=== PATIENT | female | born 2000 | race Caucasian/White ===

== ENCOUNTER 2021-12-26 15:04 | Inpatient (IN) ==
--- NOTE | 2021-12-26 15:44 | Emergency Department Note ---
Impression & Plan Suicidal ideations, Depression ED Provider Note NAME: MAITE MEDINA AGE: 21 SEX: F : 2000 ARRIVES VIA: [employer] INFORMANT: Patient ED PROVIDER(S): Neal Peralta DO CHIEF COMPLAINT: Suicidal ideations HPI: Patient is a 21-year-old female with past medical history of depression and anxiety who presents the ER who has been having a worsening thoughts of wanting to harm herself. This has been going on for the past several weeks. She notes she been struggling here at [facility] as her family is in [place]. She is very homesick. She has also been struggling with interactions with people within her [employer]. Today she told someone that she was having suicidal thoughts and they called police and she was brought in. She admits to suicidal ideations and last night she was thinking through different ways to kill her self. She notes she thought of overdosing on her medications but did not feel as though there was enough of her medication left to kill her self. She denies any auditory or visual hallucinations. No other exacerbating or remitting factors. She notes she has been eating and drinking less than usual. ROS: See above HPI for pertinent positives & negatives. A total of 10 systems reviewed and were otherwise negative. PAST MEDICAL HISTORY:See Below PAST SURGICAL HISTORY:See Below FAMILY HISTORY:See Below SOCIAL HISTORY:See Below HOME MEDICATIONS:See Below ALLERGIES:See Below VITALS:See Below PHYSICAL EXAMINATION: GENERAL: Sitting up in bed, alert, well appearing, well nourished, no distress, non-toxic EYE EXAM: normal conjunctiva. OROPHARYNX: no exudate, no erythema, lips, buccal mucosa, and tongue normal and mucous membranes are moist NECK: supple, no nuchal rigidity, no adenopathy, non-tender LUNGS: Clear to auscultation. Normal chest wall mechanics HEART: no murmurs, S1 normal and S2 normal ABDOMEN: abdomen soft, non-tender, normo-active bowel sounds, no masses, no rebound or guarding. UPPER EXTREMITIES: upper extremities are grossly normal. LOWER EXTREMITIES: No pitting edema. NEURO EXAM: Normal sensorium, cranial nerves II-XII grossly intact, normal speech, no gross weakness of arms, no gross weakness of legs. PSYCH: Admits to suicidal ideations as described above MEDICAL DECISION MAKING: Patient is a 21-year-old female who presents to ER for depression and suicidal ideations. SHE has a PMH of anxiety and depression. Labs were obtained and showed no significant leukocytosis or anemia. BMP along with LFTs, bilirubin, and TSH was unremarkable. UA was clean. Tox was negative. Alcohol was negative. COVID was negative. Patient has thought through killing herself last night and has thought of different ways of doing this. She did not kill her self as she did not feel as though she had enough medications to do it. She came in today and she does feel as though she needs inpatient treatment. Currently awaiting referrals and placement. Patient was signed out to Dr. Nam at the change of shift. Start Time: 1510 Reason: Patient with PMHx of depression underwent ED Observation for suicidal ideations. Fam Hx: No pertinent family history SocHx: See Below Assessment(s): As described above Summary: As described above Disposition: 12/26/2021 at 1930. Total Time: 4hrs 20minutes Triage Nursing notes reviewed. Limited review of prior medical records performed Vital Signs: reviewed and remarkable for HTN and tachy Differential diagnosis: Mood disorder, infection, hypoglycemia, electrolyte abnormalities, cardiac sources, intracerebral event, toxicologic, trauma, neurologic, as well as other pathologies. ER treatment provided: See below Diagnostics interpreted by me: ECG: none Laboratory studies: As stated above and show below. Imaging studies: See below Consultation(s): none Procedures: none Critical Care: None Past Med/Surg History Social History Feels Safe at Home: Yes Allergies Allergies Allergy/AdvReac Type Severity Reaction Status Date / Time No Known Allergies Allergy Unverified 12/26/21 15:32 Home Meds Home Medications Medication Instructions Recorded Confirmed lorazepam 0.5 mg tablet (Ativan) 0.5 mg PO DAILY PRN Anxiety 12/26/21 12/26/21 trazodone 50 mg tablet 75 mg PO HS 12/26/21 12/26/21 Results & Data (ED) Vital Signs Vital Signs - 24 hr 12/26/21 15:14 12/26/21 15:25 Temperature 36.7 C 36.8 C Temperature Source Oral Oral Pulse Rate 120 H Pulse Rate [Right Finger] 120 H Respiratory Rate 16 20 Respiratory Effort / Characteristics Non-Labored Non-Labored Spontaneous Respiratory Depth Normal Normal Blood Pressure 147/100 H Blood Pressure [Right Arm] 147/100 H Blood Pressure Mean 115 Blood Pressure Mean [Right Arm] 115 Blood Pressure Position Sitting Blood Pressure Position [Right Arm] Sitting Pulse Oximetry 98 99 Oxygen Delivery Method Room Air Room Air Sepsis New/Unexplained Change in Mental Status N/A Sepsis Action Taken by Nursing No Action Required Laboratory Data Result diagrams: 12/26/21 15:50 12/26/21 15:50 Lab Results 12/26/21 12/26/21 12/26/21 Range/Units 15:23 15:23 15:23 WBC (4.8-10.8) K/ul RBC (3.93-5.22) M/uL Hgb (12.0-16.0) g/dl Hct (34.1-44.9) % MCV (80.0-100.0) fL MCH (25.0-34.0) pg MCHC (32.0-36.0) g/dL RDW Std Deviation (36.4-46.3) fL RDW Coeff of [place] (11.5-14.5) % Plt Count (130-400) K/uL MPV (9.4-12.3) fL Immature Gran % (Auto) % Neut % (Auto) % Lymph % (Auto) % Giles % (Auto) % Eos % (Auto) % Baso % (Auto) % Neut # (Auto) (1.4-6.5) K/uL Lymph # (Auto) (1.2-3.4) K/uL Giles # (Auto) (0.24-0.82) K/uL Eos # (Auto) (0-0.50) K/uL Baso # (Auto) (0-0.2) K/uL Immature Gran # (Auto) (0.00-0.02) K/uL Sodium (136-145) mmol/L Potassium (3.5-5.1) mmol/L Chloride (98-107) mmol/L Carbon Dioxide (21-32) mmol/L Anion Gap (3-11) BUN (6-23) mg/dl Creatinine (0.6-1.2) mg/dl Est Cr Clr Drug Dosing Est GFR ( Amer) ml/min Est GFR (Non-Af Amer) ml/min BUN/Creatinine Ratio (10-20) Glucose (70-99(Fasting)) mg/dl Calcium (8.5-10.1) mg/dl Total Bilirubin (0.2-1.0) mg/dl AST (13-39) U/L ALT (7-52) U/L Alkaline Phosphatase (34-104) U/L Total Protein (6.0-8.3) gm/dl Albumin (3.4-5.0) gm/dl Globulin (2.5-4.0) gm/dl Albumin/Globulin Ratio (0.9-2) TSH (0.300-4.500) uIu/ml Urine Color Yellow Urine Appearance Clear (Clear) Urine pH 8.5 H (4.5-7.5) Ur Specific [place] 1.014 (1.000-1.030) Urine Protein Negative (Negative) Urine Glucose (UA) Negative (Negative) Urine Ketones Negative (Negative) Urine Blood Negative (Negative) Urine Nitrite Negative (Negative) Urine Bilirubin Negative (Negative) Urine Urobilinogen Negative (Negative) Ur Leukocyte Esterase Negative (Negative) Urine Test Negative (Negative) Salicylates (3.0-30) mg/dl Urine Opiates Screen Neg (Neg) Ur Methadone, Qual Neg (Neg) Acetaminophen (10-30) ug/ml Urine Barbiturates Neg (Neg) Ur Phencyclidine (PCP) Neg (Neg) U Amphetamin/Meth Scrn Neg (Neg) MDMA (Ecstasy) Screen Neg (Neg) U Benzodiazepines Scrn Neg (Neg) Ur Cocaine Metabolite Neg (Neg) U Marijuana (THC) Screen Neg (Neg) Ethyl Alcohol mg/dL (<10.0) mg/dl SARS-CoV-2, RNA, NAAT (NEGATIVE) 12/26/21 12/26/21 12/26/21 Range/Units 15:50 15:50 15:50 WBC 8.57 (4.8-10.8) K/ul RBC 4.83 (3.93-5.22) M/uL Hgb 14.1 (12.0-16.0) g/dl Hct 41.1 (34.1-44.9) % MCV 85.1 (80.0-100.0) fL MCH 29.2 (25.0-34.0) pg MCHC 34.3 (32.0-36.0) g/dL RDW Std Deviation 37.5 (36.4-46.3) fL RDW Coeff of [place] 12.3 (11.5-14.5) % Plt Count 275 (130-400) K/uL MPV 9.6 (9.4-12.3) fL Immature Gran % (Auto) 0.4 % Neut % (Auto) 62.3 % Lymph % (Auto) 27.3 % Giles % (Auto) 8.4 % Eos % (Auto) 1.2 % Baso % (Auto) 0.4 % Neut # (Auto) 5.35 (1.4-6.5) K/uL Lymph # (Auto) 2.34 (1.2-3.4) K/uL Giles # (Auto) 0.72 (0.24-0.82) K/uL Eos # (Auto) 0.10 (0-0.50) K/uL Baso # (Auto) 0.03 (0-0.2) K/uL Immature Gran # (Auto) 0.03 H (0.00-0.02) K/uL Sodium 139 (136-145) mmol/L Potassium 3.8 (3.5-5.1) mmol/L Chloride 106 (98-107) mmol/L Carbon Dioxide 26 (21-32) mmol/L Anion Gap 7 (3-11) BUN 5 L (6-23) mg/dl Creatinine 0.63 (0.6-1.2) mg/dl Est Cr Clr Drug Dosing Not Reportable Est GFR ( Amer) 149.7 ml/min Est GFR (Non-Af Amer) 129.1 ml/min BUN/Creatinine Ratio 7.9 L (10-20) Glucose 106 H (70-99(Fasting)) mg/dl Calcium 9.1 (8.5-10.1) mg/dl Total Bilirubin 0.4 (0.2-1.0) mg/dl AST 11 L (13-39) U/L ALT 6 L (7-52) U/L Alkaline Phosphatase 84 (34-104) U/L Total Protein 7.6 (6.0-8.3) gm/dl Albumin 4.3 (3.4-5.0) gm/dl Globulin 3.3 (2.5-4.0) gm/dl Albumin/Globulin Ratio 1.3 (0.9-2) TSH 0.548 (0.300-4.500) uIu/ml Urine Color Urine Appearance (Clear) Urine pH (4.5-7.5) Ur Specific [place] (1.000-1.030) Urine Protein (Negative) Urine Glucose (UA) (Negative) Urine Ketones (Negative) Urine Blood (Negative) Urine Nitrite (Negative) Urine Bilirubin (Negative) Urine Urobilinogen (Negative) Ur Leukocyte Esterase (Negative) Urine Test (Negative) Salicylates (3.0-30) mg/dl Urine Opiates Screen (Neg) Ur Methadone, Qual (Neg) Acetaminophen (10-30) ug/ml Urine Barbiturates (Neg) Ur Phencyclidine (PCP) (Neg) U Amphetamin/Meth Scrn (Neg) MDMA (Ecstasy) Screen (Neg) U Benzodiazepines Scrn (Neg) Ur Cocaine Metabolite (Neg) U Marijuana (THC) Screen (Neg) Ethyl Alcohol mg/dL (<10.0) mg/dl SARS-CoV-2, RNA, NAAT (NEGATIVE) 12/26/21 12/26/21 12/26/21 Range/Units 15:50 15:50 15:50 WBC (4.8-10.8) K/ul RBC (3.93-5.22) M/uL Hgb (12.0-16.0) g/dl Hct (34.1-44.9) % MCV (80.0-100.0) fL MCH (25.0-34.0) pg MCHC (32.0-36.0) g/dL RDW Std Deviation (36.4-46.3) fL RDW Coeff of [place] (11.5-14.5) % Plt Count (130-400) K/uL MPV (9.4-12.3) fL Immature Gran % (Auto) % Neut % (Auto) % Lymph % (Auto) % Giles % (Auto) % Eos % (Auto) % Baso % (Auto) % Neut # (Auto) (1.4-6.5) K/uL Lymph # (Auto) (1.2-3.4) K/uL Giles # (Auto) (0.24-0.82) K/uL Eos # (Auto) (0-0.50) K/uL Baso # (Auto) (0-0.2) K/uL Immature Gran # (Auto) (0.00-0.02) K/uL Sodium (136-145) mmol/L Potassium (3.5-5.1) mmol/L Chloride (98-107) mmol/L Carbon Dioxide (21-32) mmol/L Anion Gap (3-11) BUN (6-23) mg/dl Creatinine (0.6-1.2) mg/dl Est Cr Clr Drug Dosing Est GFR ( Amer) ml/min Est GFR (Non-Af Amer) ml/min BUN/Creatinine Ratio (10-20) Glucose (70-99(Fasting)) mg/dl Calcium (8.5-10.1) mg/dl Total Bilirubin (0.2-1.0) mg/dl AST (13-39) U/L ALT (7-52) U/L Alkaline Phosphatase (34-104) U/L Total Protein (6.0-8.3) gm/dl Albumin (3.4-5.0) gm/dl Globulin (2.5-4.0) gm/dl Albumin/Globulin Ratio (0.9-2) TSH (0.300-4.500) uIu/ml Urine Color Urine Appearance (Clear) Urine pH (4.5-7.5) Ur Specific [place] (1.000-1.030) Urine Protein (Negative) Urine Glucose (UA) (Negative) Urine Ketones (Negative) Urine Blood (Negative) Urine Nitrite (Negative) Urine Bilirubin (Negative) Urine Urobilinogen (Negative) Ur Leukocyte Esterase (Negative) Urine Test (Negative) Salicylates < 3.0 L (3.0-30) mg/dl Urine Opiates Screen (Neg) Ur Methadone, Qual (Neg) Acetaminophen < 3 L (10-30) ug/ml Urine Barbiturates (Neg) Ur Phencyclidine (PCP) (Neg) U Amphetamin/Meth Scrn (Neg) MDMA (Ecstasy) Screen (Neg) U Benzodiazepines Scrn (Neg) Ur Cocaine Metabolite (Neg) U Marijuana (THC) Screen (Neg) Ethyl Alcohol mg/dL < 10.0 (<10.0) mg/dl SARS-CoV-2, RNA, NAAT NEGATIVE (NEGATIVE) Discharge Plan Visit Data Chief Complaint: Mental Health Evaluation Stated Complaint: [facility] ED Provider: Neal Peralta Discharge Problem: Suicidal ideations, Depression Forms Stand Alone Forms: My [facility], Suicide Prevention Resources Prescriptions Prescriptions: No Action trazodone 50 mg Tablet 75 mg PO HS lorazepam [Ativan] 0.5 mg Tablet 0.5 mg PO DAILY PRN (Reason: Anxiety) Referrals Referrals: PCP,NO [Primary Care Provider] -
[2021-12-26 15:46] LABS: Appearance Urine Clear (Clear); Bilirubin Urine Negative (Negative); Blood Urine Negative (Negative); Color Urine Yellow; Glucose Urine UA Negative (Negative); Ketones Urine Negative (Negative); Leukocyte Esterase Urine Negative (Negative); Nitrite Urine Negative (Negative); Pregnancy Test, Urine Negative (Negative); Protein Urine Negative (Negative); Specific Gravity Urine 1.014 (1.000-1.030); Urobilinogen Urine Negative (Negative); pH Urine 8.5 (4.5-7.5)
[2021-12-26 16:01] LABS: Basophils # (auto) 0.03 K/uL (0-0.2); Basophils % (auto) 0.4 %; Eosinophils % (auto) 1.2 %; Hematocrit (blood only) 41.1 % (34.1-44.9); Hemoglobin 14.1 g/dl (12.0-16.0); Immature Granulocytes # (auto) 0.03 K/uL (0.00-0.02); Immature Granulocytes % (auto) 0.4 %; Lymphocytes # (auto) 2.34 K/uL (1.2-3.4); Lymphocytes % (auto) 27.3 %; Mean Corpuscular Hemoglobin 29.2 pg (25.0-34.0); Mean Corpuscular Hgb Conc 34.3 g/dL (32.0-36.0); Mean Corpuscular Volume 85.1 fL (80.0-100.0); Mean Platelet Volume 9.6 fL (9.4-12.3); Monocytes # (auto) 0.72 K/uL (0.24-0.82); Monocytes % (auto) 8.4 %; Neutrophils # (auto) 5.35 K/uL (1.4-6.5); Neutrophils % (auto) 62.3 %; Platelet Count 275 K/uL (130-400); RDW Coefficient of Variation 12.3 % (11.5-14.5); RDW Standard Deviation 37.5 fL (36.4-46.3); Red Blood Count 4.83 M/uL (3.93-5.22); White Blood Count 8.57 K/ul (4.8-10.8)
[2021-12-26 16:05] LABS: Amphetamines+Metham, Urine Neg (Neg); Barbiturates, Urine Neg (Neg); Benzodiazepine, Urine Neg (Neg); Cocaine, Urine Neg (Neg); MDMA (Ecstacy), Urine Neg (Neg); Methadone, Urine Neg (Neg); Opiate, Urine Neg (Neg); Phencyclidine, Urine Neg (Neg)
[2021-12-26 16:34] LABS: Acetaminophen < 3 ug/ml (10-30); Alanine Aminotransferase 6 U/L (7-52); Albumin Globulin Ratio 1.3 (0.9-2); Albumin Level 4.3 gm/dl (3.4-5.0); Alkaline Phosphatase 84 U/L (34-104); Anion Gap 7 (3-11); Aspartate Aminotransferase 11 U/L (13-39); BUN Creatinine Ratio 7.9 (10-20); Bilirubin,Total 0.4 mg/dl (0.2-1.0); Blood Urea Nitrogen 5 mg/dl (6-23); Calcium 9.1 mg/dl (8.5-10.1); Carbon Dioxide 26 mmol/L (21-32); Chloride 106 mmol/L (98-107); Est GFR (African American) 149.7 ml/min; Est GFR (Non-African American) 129.1 ml/min; Globulin 3.3 gm/dl (2.5-4.0); Glucose 106 mg/dl (70-99(Fasting)); Potassium 3.8 mmol/L (3.5-5.1); Salicylate < 3.0 mg/dl (3.0-30); Sodium 139 mmol/L (136-145); Total Protein 7.6 gm/dl (6.0-8.3)
[2021-12-26] MEDS ORDERED: LORazepam 1 MG TAB SL STA (19:11)
--- NOTE | 2021-12-26 19:31 | Emergency Department Note ---
ED Visit Note Received this patient in signout. See prior note for further information. Patient here for the suicide with some follow-up plans wishing for voluntary treatment of depression and anxiety. Case management proceeded with evaluation and bed search. Patient accepted to [facility] for inpatient care on voluntary basis. .
[2021-12-26] MEDS: traZODone HCL 50 MG TAB PO SCH ×2 (20:19→20:49)
[2021-12-26] MEDS ORDERED: hydrOXYzine HCl 25 MG TAB PO PRN ×2 (21:09)
[2021-12-26] MEDS ORDERED: BISMUTH SUBSALICYLATE LIQD 236 ML PO PRN (21:09)
[2021-12-26] MEDS ORDERED: SODIUM CHLORIDE 0.65% NA SOLN 45 ML (OCEAN) PRN (21:09)
[2021-12-26] MEDS ORDERED: MAGNESIUM HYDROXIDE SUSP 30 ML UDC PO PRN (21:09)
[2021-12-26] MEDS ORDERED: ACETAMINOPHEN 325 MG TAB PO PRN (21:09)
[2021-12-26] MEDS ORDERED: ALUMINUM/MAGNESIUM SUSP 30 ML UDC PO PRN (21:09)
[2021-12-26] MEDS: COUGH DROP (SUGAR FREE) LOZ 24 LOZ/1 BOX BUCCAL PRN (22:37)
[2021-12-27] MEDS: COUGH DROP (SUGAR FREE) LOZ 24 LOZ/1 BOX BUCCAL PRN ×3 (07:31→20:25)
[2021-12-27] MEDS ORDERED: FLUARIX QUADRIVALENT 0.5 ML SYR IM ONE (08:00)
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
[2021-12-27] MEDS ORDERED: LORazepam 0.5 MG TAB PO PRN (15:34)
[2021-12-27] MEDS: traZODone HCL 100 MG TAB PO SCH (21:44)
--- NOTE | 2021-12-28 15:51 | Psychiatric Progress Note ---
Date of Service December 28, 2021 Impression / Recommendations Impression The patient is a 21 year old with a history of depression and anxiety with panic attacks who was admitted for SI with plan of overdosing on her medication. Diagnostically consistent with MDD with anxious distress in context of social conflict and social isolation/loneliness since returning to campus and being away from family in [place]. The patient is deemed unstable and requires psychiatric hospitalization for diagnostic clarification, safety and stabilization, medication management and development of further coping skills. Again discussed medication treatment options in detail including SSRIs. Discussed risks, benefits and alternatives. Patient would like to start and consented to fluoxetine for MDD and YOLI and social anxiety. Reviewed side effects including but not limited to: GI, NAVARRO, sexual side effects, and counseled on black box warning of potential for emergence of or increased SI and need to let staff know should this occur or should they feel unsafe. Also discussed importance of seeking emergency care following discharge if this side effect occurs in the future. 12/28/21: Remains depressed and anxious. Tolerating higher dose of trazodone. Interested in starting fluoxetine. Left a voicemail message for her outpatient psychiatrist Dr. Viktoriya Malagon. (1) MDD (major depressive disorder), recurrent episode: (2) Suicidal ideations: (3) Generalized anxiety disorder with panic attacks: (4) Social anxiety disorder: Plan 12/28/21: -Start fluoxetine 20mg daily with lunch -Continue trazodone 100mg qhs -continue ativan 0.5mg daily prn for panic attacks 12/27/21: The patient was admitted to the [facility] ([facility] mental health unit) on q15 min checks (behavioral with suicide precautions) for safety. The patient will participate in group, recreational, and milieu therapies and will be offered additional individual and family sessions as clinically appropriate. -increase trazodone to 100 mg qhs -ativan 0.5mg daily prn Inventory Assets Strengths: supportive relationships, willing to get treatment, student Needs: safety and stabilization, medication adjustment, additional coping skills, increased outpatient services Suicide Risk Level Suicide Risk Level: High-Moderate (q15 min suicide checks) (High-Moderate due to depression with SI with plan prior to admission but feels safe in the hospital, able to safety contract and agrees to let nursing/staff know should they develop plan, intent or feel unable to remain safe. 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 Chief Complaint "I had a rough start to the day but I'm doing a little better now". Review of Systems Sleep Information Total Hours of Sleep: 6 Meal Information Percent Meal Consumed - Breakfast: 100 Percent Meal Consumed - Lunch: 100 Percent Meal Consumed - Dinner: 100 Subjective Subjective Patient was seen & assessed and interval progress reviewed with treatment team nursing and social work. Center Line more tired with higher dose of trazodone but still with some awakenings. She considered SSRI options and discussed with her mom on the phone last night. Her mom had a prior good response to fluoxetine so she'd like to try this. Reviewed that I left a message for her outpt psychiatrist. Tearful this morning but participating in groups. No side effects from higher dose of trazodone. Physical Exam Psychiatric Orientation: alert and oriented x 3 Apperance: appropriately dressed and appropriately groomed Eye Contact: good eye contact Motor Behavior: no abnormal motor movements Speech: normal rate/rhythm/volume of speech Affect: + depressed affect and + anxious affect Mood: + depressed mood and + anxious mood Thought Process: goal directed thought process Thought Content: reality based without delusions Suicidal Thoughts: denies suicidal thoughts Homicidal Thoughts: denies homicidal thoughts Hallucinations: no auditory hallucinations and no visual hallucinations Cognition: recent memory grossly intact, remote memory grossly intact, attention grossly intact and language grossly intact Estimated Intelligence: consistent with education level Insight: + fair insight Judgement: + fair judgement Vital Signs (Past 24 Hours) Last Vital Signs Temp 37 C 12/28/21 06:27 Pulse 93 H 12/28/21 06:27 Resp 16 12/28/21 06:27 BP 110/73 12/28/21 06:27 Pulse Ox 99 12/26/21 19:11 O2 Del Method 12/26/21 15:25 Results & Data ([facility]) Current Inpatient Medications Current Inpatient Medications: Current Inpatient Medications Acetaminophen (Acetaminophen 325 Mg Tab) 650 mg PO Q4H PRN PRN Reason: Headache or Minor Fever Stop: 01/25/22 21:08 Al Hydrox/Mg Hydrox/Simethicone (Aluminum/Magnesium Susp 30 Ml Udc) 30 ml PO Q4H PRN PRN Reason: GI Upset Stop: 01/25/22 21:08 Bismuth Subsalicylate (Bismuth Subsalicylate Liqd 236 Ml) 15 ml PO PRN PRN PRN Reason: Loose Stool Stop: 01/25/22 21:08 Fluoxetine HCl (Fluoxetine Hcl 20 Mg Cap) 20 mg PO DAILYBL LARA Stop: 01/28/22 11:59 Hydroxyzine HCl (Hydroxyzine Hcl 25 Mg Tab) 50 mg PO HSZ PRN PRN Reason: Insomnia Stop: 01/25/22 21:08 Hydroxyzine HCl (Hydroxyzine Hcl 25 Mg Tab) 25 mg PO Q4H PRN PRN Reason: Anxiety Stop: 01/25/22 21:08 Lorazepam (Lorazepam 0.5 Mg Tab) 0.5 mg PO DAILY PRN PRN Reason: Anxiety Stop: 01/26/22 15:33 Last Admin: 12/28/21 10:05 Dose: 0.5 mg Magnesium Hydroxide (Magnesium Hydroxide Susp 30 Ml Udc) 30 ml PO DAILY PRN PRN Reason: Constipation Stop: 01/25/22 21:08 Menthol (Cough Drop (Sugar Free) Corby 24 Corby/1 Box) 1 corby BUCCAL Q1HWA PRN PRN Reason: Sore Throat Stop: 01/25/22 21:13 Last Admin: 12/27/21 20:25 Dose: 1 corby Sodium Chloride (Sodium Chloride 0.65% Na Soln 45 Ml ([place])) 1 - 2 sprays NA PRN PRN PRN Reason: Nasal Dryness/Congestion Stop: 01/25/22 21:08 Trazodone HCl (Trazodone Hcl 100 Mg Tab) 100 mg PO HS LARA Stop: 01/26/22 21:59 Last Admin: 12/27/21 21:44 Dose: 100 mg Mental Health & Subst Abuse Tx Therapist Name of Therapist: None Ceramic Coater Name of Ceramic Coater: None Post Discharge Appointments Primary Care Physician Name Of Family Doctor: None
[2021-12-28] MEDS: traZODone HCL 100 MG TAB PO SCH (21:03)
--- NOTE | 2021-12-29 08:43 | Psychiatric Progress Note ---
Date of Service December 29, 2021 Impression / Recommendations Impression The patient is a 21 year old with a history of depression and anxiety with panic attacks who was admitted for SI with plan of overdosing on her medication. Diagnostically consistent with MDD with anxious distress in context of social conflict and social isolation/loneliness since returning to campus and being away from family in [place]. The patient is deemed unstable and requires psychiatric hospitalization for diagnostic clarification, safety and stabilization, medication management and development of further coping skills. Again discussed medication treatment options in detail including SSRIs. Discussed risks, benefits and alternatives. Patient would like to start and consented to fluoxetine for MDD and YOLI and social anxiety. Reviewed side effects including but not limited to: GI, NAVARRO, sexual side effects, and counseled on black box warning of potential for emergence of or increased SI and need to let staff know should this occur or should they feel unsafe. Also discussed importance of seeking emergency care following discharge if this side effect occurs in the future. 12/29/21: Remains depressed and anxious but slowly improving. Tolerating fluoxetine initiation without side effects. Spoke with her outpatient psychiatrist Dr. Malagon to discuss past history, reviewed treatment plan, post- hospitalization supports. (1) MDD (major depressive disorder), recurrent episode: (2) Suicidal ideations: (3) Generalized anxiety disorder with panic attacks: (4) Social anxiety disorder: Plan 12/29/21: Continue current medications and tx plan. Family meeting held. 12/28/21: -Start fluoxetine 20mg daily with lunch -Continue trazodone 100mg qhs -continue ativan 0.5mg daily prn for panic attacks 12/27/21: The patient was admitted to the [facility] ([facility] mental health unit) on q15 min checks (behavioral with suicide precautions) for safety. The patient will participate in group, recreational, and milieu therapies and will be offered additional individual and family sessions as clinically appropriate. -increase trazodone to 100 mg qhs -ativan 0.5mg daily prn Inventory Assets Strengths: supportive relationships, willing to get treatment, student Needs: safety and stabilization, medication adjustment, additional coping skills, increased outpatient services Suicide Risk Level Suicide Risk Level: Moderate (q15 min suicide checks) (High-Moderate due to depression with SI with plan prior to admission but mood improving, denies SI, feels safe in the hospital, able to safety contract and agrees to let nursing/staff know should they develop plan, intent or feel unable to remain safe. 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 Chief Complaint "It's going pretty well". Review of Systems Sleep Information Total Hours of Sleep: 7 Sleep Comments: pt given deseryl per rn. pt on q-15 minute checks Meal Information Percent Meal Consumed - Breakfast: 100 Percent Meal Consumed - Lunch: 100 Percent Meal Consumed - Dinner: 75 Subjective Subjective Patient was seen & assessed and interval progress reviewed with treatment team nursing and social work. Yesterday evening mood had improved a bit. Today reports stable mood. Slept better last night. No side effects from fluoxetine so far. Had family meeting. Physical Exam Psychiatric Orientation: alert and oriented x 3 Apperance: appropriately dressed and appropriately groomed Eye Contact: good eye contact Motor Behavior: no abnormal motor movements Speech: normal rate/rhythm/volume of speech Affect: + depressed affect and + anxious affect Mood: + depressed mood and + anxious mood Thought Process: goal directed thought process Thought Content: reality based without delusions Suicidal Thoughts: denies suicidal thoughts Homicidal Thoughts: denies homicidal thoughts Hallucinations: no auditory hallucinations and no visual hallucinations Cognition: recent memory grossly intact, remote memory grossly intact, attention grossly intact and language grossly intact Estimated Intelligence: consistent with education level Insight: + fair insight Judgement: + fair judgement Vital Signs (Past 24 Hours) Last Vital Signs Temp 36.9 C 12/29/21 06:38 Pulse 91 H 12/29/21 06:39 Resp 16 12/29/21 06:38 BP 115/77 12/29/21 06:39 Pulse Ox 99 12/26/21 19:11 O2 Del Method 12/26/21 15:25 Results & Data ([facility] [place]) Current Inpatient Medications Current Inpatient Medications: Current Inpatient Medications Acetaminophen (Acetaminophen 325 Mg Tab) 650 mg PO Q4H PRN PRN Reason: Headache or Minor Fever Stop: 01/25/22 21:08 Al Hydrox/Mg Hydrox/Simethicone (Aluminum/Magnesium Susp 30 Ml Udc) 30 ml PO Q4H PRN PRN Reason: GI Upset Stop: 01/25/22 21:08 Bismuth Subsalicylate (Bismuth Subsalicylate Liqd 236 Ml) 15 ml PO PRN PRN PRN Reason: Loose Stool Stop: 01/25/22 21:08 Fluoxetine HCl (Fluoxetine Hcl 20 Mg Cap) 20 mg PO DAILYBL LARA Stop: 01/28/22 11:59 Hydroxyzine HCl (Hydroxyzine Hcl 25 Mg Tab) 50 mg PO HSZ PRN PRN Reason: Insomnia Stop: 01/25/22 21:08 Hydroxyzine HCl (Hydroxyzine Hcl 25 Mg Tab) 25 mg PO Q4H PRN PRN Reason: Anxiety Stop: 01/25/22 21:08 Lorazepam (Lorazepam 0.5 Mg Tab) 0.5 mg PO DAILY PRN PRN Reason: Anxiety Stop: 01/26/22 15:33 Last Admin: 12/28/21 10:05 Dose: 0.5 mg Magnesium Hydroxide (Magnesium Hydroxide Susp 30 Ml Udc) 30 ml PO DAILY PRN PRN Reason: Constipation Stop: 01/25/22 21:08 Menthol (Cough Drop (Sugar Free) Corby 24 Corby/1 Box) 1 corby BUCCAL Q1HWA PRN PRN Reason: Sore Throat Stop: 01/25/22 21:13 Last Admin: 12/27/21 20:25 Dose: 1 corby Sodium Chloride (Sodium Chloride 0.65% Na Soln 45 Ml ([place])) 1 - 2 sprays NA PRN PRN PRN Reason: Nasal Dryness/Congestion Stop: 01/25/22 21:08 Trazodone HCl (Trazodone Hcl 100 Mg Tab) 100 mg PO HS LARA Stop: 01/26/22 21:59 Last Admin: 12/28/21 21:03 Dose: 100 mg Mental Health & Subst Abuse Tx Therapist Name of Therapist: None Micro Paleontologist Name of Micro Paleontologist: None Post Discharge Appointments Primary Care Physician Name Of Family Doctor: None
[2021-12-29] MEDS: COUGH DROP (SUGAR FREE) LOZ 24 LOZ/1 BOX BUCCAL PRN (09:33)
[2021-12-29] MEDS: FLUoxetine HCL 20 MG CAP PO SCH (12:37)
[2021-12-29] MEDS: traZODone HCL 100 MG TAB PO SCH (20:37)
--- NOTE | 2021-12-30 09:08 | Psychiatric Progress Note ---
Date of Service December 30, 2021 Impression / Recommendations Impression The patient is a 21 year old with a history of depression and anxiety with panic attacks who was admitted for SI with plan of overdosing on her medication. Diagnostically consistent with MDD with anxious distress in context of social conflict and social isolation/loneliness since returning to campus and being away from family in [place]. The patient is deemed unstable and requires psychiatric hospitalization for diagnostic clarification, safety and stabilization, medication management and development of further coping skills. 12/30/21: Mood improving, no SI. Tolerating medication changes. (1) MDD (major depressive disorder), recurrent episode: (2) Suicidal ideations: (3) Generalized anxiety disorder with panic attacks: (4) Social anxiety disorder: Plan 12/30/21: Continue medications and tx plan. 12/29/21: Continue current medications and tx plan. Family meeting held. 12/28/21: -Start fluoxetine 20mg daily with lunch -Continue trazodone 100mg qhs -continue ativan 0.5mg daily prn for panic attacks 12/27/21: The patient was admitted to the [facility] ([facility] mental [facility] unit) on q15 min checks (behavioral with suicide precautions) for safety. The patient will participate in group, recreational, and milieu therapies and will be offered additional individual and family sessions as clinically appropriate. -increase trazodone to 100 mg qhs -ativan 0.5mg daily prn Inventory Assets Strengths: supportive relationships, willing to get treatment, student Needs: safety and stabilization, medication adjustment, additional coping skills, increased outpatient services Suicide Risk Level Suicide Risk Level: Moderate (q15 min suicide checks) (depression with SI with plan prior to admission but mood improving, denies SI, feels safe in the hospital, able to safety contract and agrees to let nursing/staff know should they develop plan, intent or feel unable to remain safe. 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 Chief Complaint "I'm starting to feel like the depression has lifted, it's really nice". Review of Systems Sleep Information Total Hours of Sleep: 6 Sleep Comments: pt given deseryl per rn. pt on q-15 minute checks Meal Information Percent Meal Consumed - Breakfast: 100 Percent Meal Consumed - Lunch: 80 Percent Meal Consumed - Dinner: 100 Subjective Subjective Patient was seen & assessed and interval progress reviewed with treatment team nursing and social work. Tearful after group yesterday afternoon. Mood improving. Denies SI. No medication side effects. Looking forward to events this weekend. Physical Exam Psychiatric Orientation: alert and oriented x 3 Apperance: appropriately dressed and appropriately groomed Eye Contact: good eye contact Motor Behavior: no abnormal motor movements Speech: normal rate/rhythm/volume of speech Affect: + anxious affect Mood: + anxious mood Thought Process: goal directed thought process Thought Content: reality based without delusions Suicidal Thoughts: denies suicidal thoughts Homicidal Thoughts: denies homicidal thoughts Hallucinations: no auditory hallucinations and no visual hallucinations Cognition: recent memory grossly intact, remote memory grossly intact, attention grossly intact and language grossly intact Estimated Intelligence: consistent with education level Insight: + fair insight Judgement: + fair judgement Vital Signs (Past 24 Hours) Last Vital Signs Temp 36.7 C 12/30/21 06:42 Pulse 79 12/30/21 06:42 Resp 18 12/30/21 06:42 BP 117/78 12/30/21 06:44 Pulse Ox 99 12/26/21 19:11 O2 Del Method 12/26/21 15:25 Results & Data ([facility]) Current Inpatient Medications Current Inpatient Medications: Current Inpatient Medications Acetaminophen (Acetaminophen 325 Mg Tab) 650 mg PO Q4H PRN PRN Reason: Headache or Minor Fever Stop: 01/25/22 21:08 Al Hydrox/Mg Hydrox/Simethicone (Aluminum/Magnesium Susp 30 Ml Udc) 30 ml PO Q4H PRN PRN Reason: GI Upset Stop: 01/25/22 21:08 Bismuth Subsalicylate (Bismuth Subsalicylate Liqd 236 Ml) 15 ml PO PRN PRN PRN Reason: Loose Stool Stop: 01/25/22 21:08 Fluoxetine HCl (Fluoxetine Hcl 20 Mg Cap) 20 mg PO DAILYBL LARA Stop: 01/28/22 11:59 Last Admin: 12/29/21 12:37 Dose: 20 mg Hydroxyzine HCl (Hydroxyzine Hcl 25 Mg Tab) 50 mg PO HSZ PRN PRN Reason: Insomnia Stop: 01/25/22 21:08 Hydroxyzine HCl (Hydroxyzine Hcl 25 Mg Tab) 25 mg PO Q4H PRN PRN Reason: Anxiety Stop: 01/25/22 21:08 Lorazepam (Lorazepam 0.5 Mg Tab) 0.5 mg PO DAILY PRN PRN Reason: Anxiety Stop: 01/26/22 15:33 Last Admin: 12/28/21 10:05 Dose: 0.5 mg Magnesium Hydroxide (Magnesium Hydroxide Susp 30 Ml Udc) 30 ml PO DAILY PRN PRN Reason: Constipation Stop: 01/25/22 21:08 Menthol (Cough Drop (Sugar Free) Corby 24 Corby/1 Box) 1 corby BUCCAL Q1HWA PRN PRN Reason: Sore Throat Stop: 01/25/22 21:13 Last Admin: 12/29/21 09:33 Dose: 1 corby Sodium Chloride (Sodium Chloride 0.65% Na Soln 45 Ml ([place])) 1 - 2 sprays NA PRN PRN PRN Reason: Nasal Dryness/Congestion Stop: 01/25/22 21:08 Trazodone HCl (Trazodone Hcl 100 Mg Tab) 100 mg PO HS LARA Stop: 01/26/22 21:59 Last Admin: 12/29/21 20:37 Dose: 100 mg Mental Health & Subst Abuse Tx Psychiatrist Name of Psychiatrist: Dr. Viktoriya Malagon Located Within [facility] Psychiatrist's Date of Appointment with Psychiatrist: 01/10/22 Time of Appointment with Psychiatrist: 2:20 PM Psychiatric Appointment Comment: This appointment is via telehealth. Therapist Name of Therapist: Arnel Colmenares Therapist's Date of Therapist Appointment: 01/13/22 Time of Therapist Appointment: 12:30 PM Therapy Appointment Comment: [phone], [address], [place] [address] Web Operations Manager Name of Web Operations Manager: None Post Discharge Appointments Primary Care Physician Name Of Family Doctor: [facility] Primary Care Provider Appointment Comment: Please follow-up as needed. Contact Information Discharge Discharge Address: [id number], [place] [address]
[2021-12-30] MEDS: FLUoxetine HCL 20 MG CAP PO SCH (13:00)
[2021-12-30] MEDS: traZODone HCL 100 MG TAB PO SCH (21:15)
[2021-12-30] MEDS: COUGH DROP (SUGAR FREE) LOZ 24 LOZ/1 BOX BUCCAL PRN (21:49)
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
[2021-12-31] MEDS: FLUoxetine HCL 20 MG CAP PO SCH (11:16)
== END 2021-12-31 11:35 | disposition home or self-care (01) | DRG 885 ==
LOC: ED 15:04 → 3S 20:03